=== PATIENT | male | born 1950 | race Hispanic/Latino ===

== ENCOUNTER 2021-05-05 15:48 | Emergency (ER) | payer OTHER ==
--- OUTSIDE RECORDS SUMMARY | 2021-05-05 15:51 | XMS REPORT | Continuity of Care Document ---
:1950 Author Organization [facility] t Address [address] [place] [address] Care Team Providers Name Role Phone STALIN Attending Clinician Unavailable Problems This patient has no known problems. Allergies, Adverse Reactions, Alerts This patient has no known allergies or adverse reactions. Medications This patient has no known medications. Procedures This patient has no known procedures. Encounters Start End Encounter Admission Attending Care Care Encounter Source Date/Time Date/Time Type Type Clinicians Facility Department ID 2021-05-03 [facility] [id number] 08:[facility] 2020-06-14 2020-06-14 [facility] [id number] 906 [place] 00:00:00 00:00:00 LORA [id number] 2020-05-26 2020-05-26 Outpatient [facility] [id number] 825 [place] 00:00:00 00:00:[address] Results This patient has no known results.
[2021-05-05 18:23] LABS: Absolute Lymphocytes (CBC) 1.3 K/uL (0.7-4.9); Hematocrit 41.6 % (39.6-49.0); Lymphocytes % 13.2 % (15.3-44.8); MPV 7.8 fL (7.6-11.3); RBC Red Blood Cell Count 4.52 M/uL (4.33-5.43)
[2021-05-05 18:35] LABS: Potassium 3.9 mmol/L (3.5-5.1)
--- NOTE | 2021-05-05 19:13 | RAD REPORT ---
EXAM DESCRIPTION: CT - Abdomen Pelvis W Contrast - 05/05/2021 7:03 pm CLINICAL HISTORY: CONSTIPATION COMPARISON: No comparisons TECHNIQUE: Biphasic, helical CT imaging of the abdomen and pelvis was performed following 100 ml non -ionic IV contrast. No oral contrast administered. All CT scans are performed using dose optimization technique as appropriate and may include automated exposure control or mA/KV adjustment according to patient size. FINDINGS: No suspicious findings in the lung bases. The liver, spleen, and pancreas show no suspicious findings. Gallbladder and biliary tree are also wi thout suspicious finding. Symmetric renal function is seen with no hydronephrosis or suspicious renal mass. Bilateral renal cys ts are present. A 6.8 centimeter cyst is present upper pole right kidney. Central right hilum contain s a 2.7 centimeter cyst. An exophytic lateral lower pole right renal cyst is 5.5 cm in diameter. Left kidney contains a few very small sub centimeter cysts. No pyelonephritis or acute parenchymal proces s. No bladder abnormalities. No adrenal abnormalities. Mildly prominent prostate gland projects into the bladder base. Air and fluid fill but do not dilate the stomach. No gastric wall thickening, mass or evidence for ou tlet obstruction. Duodenum is unremarkable. Small bowel loops are also unremarkable with normal appen julia. Moderate stool volume fills the colon. No colon wall thickening or mass seen. Diverticulosis in the left side colon is minimal. No free air, free fluid or inflammatory stranding. No hernia, mass or bulky lymphadenopathy. No suspicious bony findings. Prominent aortoiliac atherosclerotic calcifications are present. There is aortoiliac tortuosity. Irre gular plaquing changes are present. IMPRESSION: No obstruction, free air or emergent CT abdomen or pelvis finding. Air and fluid fill but do not dilate the stomach. No acute or worrisome stomach, small bowel or colon finding.
--- NOTE | 2021-05-05 19:26 | ER ---
Nurse's Notes [facility] Name: Gordon Cardona Age: 70 yrs Sex: Male : 1950 Arrival Date: 05/05/2021 Time: 15:52 Bed 13 Private MD: Diagnosis: Constipation Presentation: 05/05 16:09 Chief complaint: Patient states: constipation x 6 days. Pt reports today he had two ss episodes of N/V after feeling heart burn. Pt states that after he vomits, his heart burn went away. Coronavirus screen: Client denies travel out of the [place] in the last 14 days. Ebola Screen: Patient denies exposure to infectious person. Patient denies travel to an Ebola-affected area in the 21 days before illness onset. Initial Sepsis Screen: Does the patient meet any 2 criteria? HR > 90 bpm. No. Patient's initial sepsis screen is negative. Does the patient have a suspected source of infection? No. Patient's initial sepsis screen is negative. Risk Assessment: Do you want to hurt yourself or someone else? Patient reports no desire to harm self or others. Onset of symptoms was April 29, 2021. 16:09 Method Of Arrival: Ambulatory ss 16:09 Acuity: ALEKSANDRA 3 ss Historical: - Allergies: 16:11 No Known Allergies; ss - PMHx: 16:11 Diabetes mellitus; GERD; ss - Immunization history:: Client reports receiving the 2nd dose of the Covid vaccine. - Social history:: Smoking status: Patient reports the use of cigarette tobacco products, smokes one-half pack cigarettes per day, Patient/guardian denies using tobacco. Screenin:10 Abuse screen: Denies threats or abuse. Denies injuries from another. Nutritional ic1 screening: No deficits noted. Tuberculosis screening: No symptoms or risk factors identified. Fall Risk None identified. Assessment: 18:10 General: Appears in no apparent distress. comfortable, Behavior is calm, cooperative. ic1 Pain: Denies pain. Neuro: Level of Consciousness is awake, alert, obeys commands, Oriented to person, place, time, situation. Cardiovascular: Denies chest pain. Respiratory: Denies shortness of breath. GI: Abd is non tender Reports constipation, Patient currently denies nausea, vomiting. : No deficits noted. EENT: No deficits noted. Derm: No deficits noted. Musculoskeletal: No deficits noted. Vital Signs: 16:09 BP 135 / 80; Pulse 115; Resp 17; Temp 98.0(TE); Pulse Ox 100% on R/A; Weight 66.68 kg; ss Height 5 ft. 8 in. (172.72 cm); Pain 0/10; 18:10 BP 138 / 90; Pulse 93; Resp 18; Pulse Ox 99% on R/A; ic1 16:09 Body Mass Index 22.35 (66.68 kg, 172.72 cm) ED Course: 15:52 Patient arrived in ED. ds1 16:11 Triage completed. ss 16:11 Arm band placed on right wrist. ss 17:50 Heide Dale, RN is Primary Nurse. ic1 17:51 Jackelyn Blanco FNP-C is PHCP. kb 17:51 Blair Goode MD is Attending Physician. kb 18:10 Patient has correct armband on for positive identification. Bed in low position. Call ic1 light in reach. Side rails up X2. 18:10 Basic Metabolic Panel Sent. ic1 18:10 CBC with Diff Sent. ic1 18:10 No provider procedures requiring assistance completed. Inserted saline lock: 20 gauge ic1 in right antecubital area, using aseptic technique. Blood collected. 19:03 CT Abd/Pelvis - IV Contrast Only In Process Unspecified. EDMS 20:00 IV discontinued, intact, bleeding controlled, No redness/swelling at site. Pressure st1 dressing applied. Administered Medications: No medications were administered Outcome: 19:25 Discharge ordered by . kb 20:00 Discharged to home ambulatory. st1 20:00 Condition: good 20:00 Discharge instructions given to patient, Instructed on discharge instructions, follow up and referral plans. Demonstrated understanding of instructions, follow-up care. 20:01 Patient left the ED. st1 Signatures: Dispatcher [employer] EDMS Jackelyn Blanco FNP-C FNP-Ckb Sanford, Demi ds1 Sherita Barrera RN RN Heide Dale RN RN ic1 Marya Worley RN RN st1
--- NOTE | 2021-05-05 19:26 | EDPHYS ---
Physician Documentation [facility] Name: Gordon Cardona Age: 70 yrs Sex: Male : 1950 Arrival Date: 05/05/2021 Time: 15:52 Bed 13 Private MD: ED Physician Blair Goode HPI: 05/05 18:00 This 70 yrs old Male presents to ER via Ambulatory with complaints of kb Constipation, Abdominal Pain. 18:01 The patient presents to the emergency department with vomiting, constipation. Onset: kb The symptoms/episode began/occurred 7 day(s) ago. Possible causes: unknown. The symptoms are aggravated by nothing. The symptoms are alleviated by nothing. Associated signs and symptoms: Pertinent positives: constipation, vomiting, Pertinent negatives: abdominal pain, diarrhea, fever. Severity of symptoms: At their worst the symptoms were moderate in the emergency department the symptoms are unchanged. The patient has experienced similar episodes in the past, a few times. The patient has not recently seen a physician. Pt reports constipation that started 7 days ago. States he has vomited a few times as well. Denies abd pain, fever, diarrhea. States he has been able to have very small bowel movements. Has tried dulcolax with no relief. Historical: - Allergies: 16:11 No Known Allergies; ss - PMHx: 16:11 Diabetes mellitus; GERD; ss - Immunization history:: Client reports receiving the 2nd dose of the Covid vaccine. - Social history:: Smoking status: Patient reports the use of cigarette tobacco products, smokes one-half pack cigarettes per day, Patient/guardian denies using tobacco. ROS: 17:59 Constitutional: Negative for fever, chills, and weight loss. kb 17:59 Abdomen/GI: Positive for vomiting, constipation, Negative for abdominal pain. 17:59 All other systems are negative. Exam: 17:59 Constitutional: This is a well developed, well nourished patient who is awake, alert, kb and in no acute distress. Head/Face: Normocephalic, atraumatic. ENT: Moist Mucous membranes Cardiovascular: Regular rate and rhythm with a normal S1 and S2. No gallops, murmurs, or rubs. No pulse deficits. Respiratory: Respirations even and unlabored. No increased work of breathing. Talking in full sentences Abdomen/GI: Soft, non-tender. No distention Skin: Warm, dry with normal turgor. Normal color. MS/ Extremity: Pulses equal, no cyanosis. Neurovascular intact. Full, normal range of motion. Neuro: Awake and alert, GCS 15, oriented to person, place, time, and situation. Moves all extremities. Normal gait. Psych: Awake, alert, with orientation to person, place and time. Behavior, mood, and affect are within normal limits. Vital Signs: 16:09 BP 135 / 80; Pulse 115; Resp 17; Temp 98.0(TE); Pulse Ox 100% on R/A; Weight 66.68 kg; ss Height 5 ft. 8 in. (172.72 cm); Pain 0/10; 18:10 BP 138 / 90; Pulse 93; Resp 18; Pulse Ox 99% on R/A; ic1 16:09 Body Mass Index 22.35 (66.68 kg, 172.72 cm) ss MDM: 17:51 Patient medically screened. kb 18:00 Data reviewed: vital signs, nurses notes. Data interpreted: Pulse oximetry: on room air kb is 100 %. Interpretation: normal. 19:24 Counseling: I had a detailed discussion with the patient and/or guardian regarding: the kb historical points, exam findings, and any diagnostic results supporting the discharge/admit diagnosis, lab results, radiology results, the need for outpatient follow up, a family practitioner, to return to the emergency department if symptoms worsen or persist or if there are any questions or concerns that arise at home. 05/05 17:56 Order name: Basic Metabolic Panel; Complete Time: 18:36 kb 05/05 17:56 Order name: CBC with Diff; Complete Time: 18:26 kb 05/05 17:56 Order name: IV Saline Lock; Complete Time: 18:10 kb 05/05 17:56 Order name: Labs collected and sent; Complete Time: 18:10 kb 17 17:56 Order name: CT Abd/Pelvis - IV Contrast Only; Complete Time: 19:23 kb Administered Medications: No medications were administered Disposition Summary: 05/05/21 19:25 Discharge Ordered Location: Home Condition: Stable kb Diagnosis - Constipation kb Followup: kb - With: Emergency Department - When: As needed - Reason: Worsening of condition Followup: kb - With: Private Physician - When: 2 - 3 days - Reason: Recheck today's complaints, Continuance of care, Re-evaluation by your physician Discharge Instructions: - Discharge Summary Sheet kb - Constipation, Adult, [id number] kb Forms: - Medication Reconciliation Form kb - Thank You Letter kb - Antibiotic Education kb - Prescription Opioid Use kb Addendum: 05/07/2021 00:03 Co-signature as Attending Physician, Blair Goode MD I agree with the assessment and k dr plan of care. Signatures: Dispatcher [employer] EDMA Jackelyn Blanco, HOSPITALITY HOUSEKEEPER-C HOSPITALITY HOUSEKEEPER-CkBlair Patel MD MD [facility] [address] Sherita Barrera, RN RN ss Corrections: (The following items were deleted from the chart) 05/05 19:24 18:01 Pt reports constipation that started 7 days ago. States he has vomited a few kb times as well. Denies abd pain, fever, diarrhea. States he has been able to have very small bowel movements. kb
[2021-05-05 20:51] VITALS: TEMP 98
[2021-05-05 20:52] VITALS: BP 138/90; O2SAT 99
== END 2021-05-05 20:01 | disposition home or self-care (01) ==
LOC: ER 15:48
DX: K59.00 Constipation, unspecified (principal); R11.10 Vomiting, unspecified; E11.9 Type 2 diabetes mellitus without complications; F17.210 Nicotine dependence, cigarettes, uncomplicated
CPT/HCPCS: 85025; 80048; 36415; 74177; 99283; Q9967

== ENCOUNTER 2021-05-27 09:06 | Emergency (ER) | payer OTHER ==
--- OUTSIDE RECORDS SUMMARY | 2021-05-27 09:08 | XMS REPORT | Continuity of Care Document ---
:1950 Author Organization [facility] t Address [address] [place] [address] [address] [place] [address] Care Team Providers Name Role Phone STALIN [...] Type Clinicians Facility Department ID 2021-05-03 Outpatient [facility] [id number] 08:46:[facility] 2020-06-14 2020-06-14 Outpatient STALIN [facility] [id number] 906 [place] 00:00:00 00:00:00 [id number] 2020-05-26 2020-05-26 Outpatient [facility] [id number] 825 [place] 00:00:00 00:00:[address] Results This patient has no known results.
--- NOTE | 2021-05-27 09:47 | RAD REPORT ---
EXAM DESCRIPTION: RAD - Chest Single View - 05/27/2021 9:41 am CLINICAL HISTORY: syncope COMPARISON: No comparisons FINDINGS: Lines: None. Lungs: No evidence of edema or pneumonia. Pleural: No significant pleural effusions or pneumothorax. Cardiac: The heart size is within normal limits. Bones: No acute fractures. Other: IMPRESSION: No acute cardiopulmonary disease.
--- NOTE | 2021-05-27 09:50 | RAD REPORT ---
EXAM DESCRIPTION: CT - Head Brain Wo Cont - 05/27/2021 9:42 am CLINICAL HISTORY: VISUAL DISTURBANCES COMPARISON: No comparisons TECHNIQUE: All CT scans are performed using dose optimization technique as appropriate and may inclu de automated exposure control or mA/KV adjustment according to patient size. FINDINGS: No intracranial hemorrhage, hydrocephalus or extra-axial fluid collection.No areas of brai n edema or evidence of midline shift. Question postoperative changes at the right mastoid from mastoidectomy. There is debris in the right external ear canal. . The calvarium is intact. IMPRESSION: No acute intracranial abnormality.
[2021-05-27 10:02] LABS: Absolute Lymphocytes (CBC) 1.7 K/uL (0.7-4.9); Hematocrit 39.9 % (39.6-49.0); Lymphocytes % 29.9 % (15.3-44.8); MPV 7.4 fL (7.6-11.3); RBC Red Blood Cell Count 4.33 M/uL (4.33-5.43)
[2021-05-27 10:06] LABS: Protime INR 1.01
[2021-05-27 10:30] LABS: Albumin 3.5 g/dL (3.4-5.0); Bilirubin Direct 0.1 mg/dL (0-0.2); Bilirubin Total 0.4 mg/dL (0.2-1.0); Magnesium 1.7 mg/dL (1.8-2.4); Protein, Total 7.1 g/dL (6.4-8.2); Troponin High Sensitivity 5.6 pg/mL (<58.9)
[2021-05-27] MEDS ORDERED: NA CHLORIDE 0.9% 500 ML ONE (10:49)
[2021-05-27] MEDS ORDERED: MAGNESIUM SULFATE 1 gm IVPB 1 GM/100 ML BAG IV ONE (10:50)
--- NOTE | 2021-05-27 11:24 | RAD REPORT ---
EXAM DESCRIPTION: CT - Head angio - 05/27/2021 11:01 am CLINICAL HISTORY: Visual disturbances;TIA COMPARISON: Head Brain Wo Cont dated 05/27/2021 TECHNIQUE: CT angiography of the head was performed with MIPs. All CT scans are performed using dose optimization technique as appropriate and may include automated exposure control or mA/KV adjustment according to patient size. FINDINGS: Anterior circulation: No aneurysm or large vessel occlusion. No hemodynamically significant stenosis. No arteriovenous malf ormation identified. Intracranial atherosclerosis. Posterior circulation: No aneurysm or large vessel occlusion. No hemodynamically significant stenosis. No arteriovenous malf ormation identified. type left GRINDER HARDBOARD. IMPRESSION: No significant flow abnormality is detected. Moderate intracranial atherosclerosis invol ving the bilateral ICAs.
--- NOTE | 2021-05-27 11:32 | ER ---
Nurse's Notes [facility] Name: Gordon Cardona Age: 70 yrs Sex: Male : 1950 Arrival Date: 05/27/2021 Time: 09:07 Bed 4 Private MD: Chiquita Navarrete H Diagnosis: Other visual disturbances Presentation: 05/27 09:00 Chief complaint: Patient states: I was told to come to the emergency room yesterday jg9 after going to see my eye doctor, 1 year ago I had a cataract surgery, recently I had times when my vision would go black, I had my eyes checked yesterday and they doctor said he was concerned about me having a stroke due to the pressure in my eyes being high. Coronavirus screen: Vaccine status: Patient reports receiving the 2nd dose of the covid vaccine. covid vaccination x2 and booster. Ebola Screen: Patient negative for fever greater than or equal to 101.5 degrees Fahrenheit, and additional compatible Ebola Virus Disease symptoms Patient denies exposure to infectious person. Patient denies travel to an Ebola-affected area in the 21 days before illness onset. Initial Sepsis Screen: Does the patient meet any 2 criteria? No. Patient's initial sepsis screen is negative. Does the patient have a suspected source of infection? No. Patient's initial sepsis screen is negative. Initial Sepsis Screen: Does the patient meet any 2 criteria?. Risk Assessment: Do you want to hurt yourself or someone else? Patient reports no desire to harm self or others. Onset of symptoms is unknown. 09:00 Method Of Arrival: Ambulatory jg9 09:00 Acuity: ALEKSANDRA 3 jg9 Triage Assessment: 09:00 General: Appears in no apparent distress. Behavior is calm, cooperative. Pain: Denies jg9 pain. Neuro: Reports intermittent visual black outs-most recent a couple days ago. Historical: - Allergies: :27 No Known Allergies; jg9 - PMHx: 09:27 diabetes mellitus; GERD; jg9 - PSHx: 09:27 left eye cataract; jg9 - Immunization history:: Adult Immunizations up to date, Pneumococcal vaccine is up to date, Flu vaccine is not up to date. - Social history:: Smoking status: Patient reports the use of cigarette tobacco products, smokes one-half pack cigarettes per day. Screenin:28 Abuse screen: Denies threats or abuse. Denies injuries from another. Nutritional jg9 screening: No deficits noted. Tuberculosis screening: No symptoms or risk factors identified. Fall Risk None identified. Assessment: 10:03 Reassessment: Patient appears in no apparent distress at this time. No changes from jg9 previously documented assessment. 11:30 Reassessment: Patient and/or family updated on plan of care and expected duration. Pain jh6 level reassessed. Patient is alert, oriented x 3, equal unlabored respirations, skin warm/dry/pink. Patient denies pain at this time. Patient states feeling better. Vital Signs: 09:00 BP 176 / 97; Pulse 99; Resp 17 S; Temp 98.2(TE); Pulse Ox 99% on R/A; Weight 63.5 kg jg9 (R); Height 5 ft. 9 in. (175.26 cm) (R); Pain 0/10; 09:30 BP 152 / 92; Pulse 91; Resp 16 S; Pulse Ox 100% on R/A; jg9 10:00 BP 103 / 90; Pulse 86; Resp 16 S; Pulse Ox 98% on R/A; Pain 0/10; jg9 12:07 BP 154 / 77; Pulse 76; Resp 18; Pulse Ox 100% ; Pain 0/10; jh6 09:00 Body Mass Index 20.67 (63.50 kg, 175.26 cm) jg9 ED Course: 09:07 Patient arrived in ED. as 09:08 Chiquita Navarrete DO is Private Physician. as 09:12 Alma Delia Boucher, LUZ is Primary Nurse. jg9 09:14 Howard Colby PA is PHCP. jr8 09:14 Blair Goode MD is Attending Physician. jr8 09:27 Triage completed. jg9 09:29 Arm band placed on right wrist. jg9 09:29 Patient has correct armband on for positive identification. Bed in low position. Call jg9 light in reach. Side rails up X 1. 09:40 XRAY Chest (1 view) In Process Unspecified. EDMS 09:42 CT Head Brain wo Cont In Process Unspecified. EDMS 09:52 Warm blanket given. jw7 10:40 Basic Metabolic Panel Sent. jg9 10:40 CBC with Diff Sent. jg9 11:01 CT Head Angio In Process Unspecified. EDMS 11:31 Gm Taylor MD is Referral Physician. jr8 12:07 IV discontinued, intact, bleeding controlled, No redness/swelling at site. Pressure jh6 dressing applied. 12:08 No provider procedures requiring assistance completed. jh6 Administered Medications: 11:06 Drug: NS 0.9% 500 ml Route: IV; Rate: bolus; Site: right antecubital; jh6 11:06 Drug: Magnesium Sulfate 1 grams Route: IVPB; Infused Over: 1 hrs; Site: right [facility] antecubital; Outcome: 11:31 Discharge ordered by . jr8 12:08 Discharged to home jh6 12:08 Condition: good 12:08 Discharge instructions given to patient, Instructed on discharge instructions, follow up and referral plans. Demonstrated understanding of instructions, follow-up care, medications, Prescriptions given X 1. 12:08 Patient left the ED. 6 Signatures: Dispatcher [employer] Lizzy Chiu Josh, SOO PA jr8 Alma Delia Quigley, RN RN jh6 Alma Delia Boucher, RN RN jg9 Rosario Nath jw7
--- NOTE | 2021-05-27 11:32 | EDPHYS ---
Physician Documentation [facility] Name: Gordon Cardona Age: 70 yrs Sex: Male : 1950 Arrival Date: 05/27/2021 Time: 09:07 Bed 4 Private MD: Chiquita Navarrete H ED Physician Blair Goode HPI: 05/27 11:25 This 70 yrs old Male presents to ER via Ambulatory with complaints of Vision jr8 Problem. 11:25 Onset: The symptoms/episode began/occurred acutely, 2 week(s) ago. Associated signs and jr8 symptoms: The patient has no apparent associated signs or symptoms. Modifying factors: The patient symptoms are alleviated by nothing, the patient symptoms are aggravated by nothing. The patient has not experienced similar symptoms in the past. The patient has been recently seen by a physician:. Patient stated that he had a very brief less then 1 sec black spot that occurred to left eye approximately 2 weeks ago. Stated that he was just able to get into eye doctor yesterday and was concerned that he had amaurosis fugax and was sent to ED for further evaluation. Patient denies any other episodes. Denies dizziness, headaches, or pain or pressure to eye. Historical: - Allergies: 09:27 No Known Allergies; jg9 - PMHx: 09:27 diabetes mellitus; GERD; jg9 - PSHx: 09:27 left eye cataract; jg9 - Immunization history:: Adult Immunizations up to date, Pneumococcal vaccine is up to date, Flu vaccine is not up to date. - Social history:: Smoking status: Patient reports the use of cigarette tobacco products, smokes one-half pack cigarettes per day. ROS: 11:25 ENT: Negative for injury, pain, and discharge, Neck: Negative for injury, pain, and jr8 swelling, Cardiovascular: Negative for chest pain, palpitations, and edema, Respiratory: Negative for shortness of breath, cough, wheezing, and pleuritic chest pain, Abdomen/GI: Negative for abdominal pain, nausea, vomiting, diarrhea, and constipation, Back: Negative for injury and pain, MS/Extremity: Negative for injury and deformity, Skin: Negative for injury, rash, and discoloration, Neuro: Negative for headache, weakness, numbness, tingling, and seizure. 11:25 Eyes: Positive for visual disturbance. Exam: 11:25 Constitutional: This is a well developed, well nourished patient who is awake, alert, jr8 and in no acute distress. Eyes: Pupils equal round and reactive to light, extra-ocular motions intact. Lids and lashes normal. Conjunctiva and sclera are non-icteric and not injected. Cornea within normal limits. Periorbital areas with no swelling, redness, or edema. ENT: Nares patent. No nasal discharge, no septal abnormalities noted. Tympanic membranes are normal and external auditory canals are clear. Oropharynx with no redness, swelling, or masses, exudates, or evidence of obstruction, uvula midline. Mucous membranes moist. Neck: Trachea midline, no thyromegaly or masses palpated, and no cervical lymphadenopathy. Supple, full range of motion without nuchal rigidity, or vertebral point tenderness. No Meningismus. Cardiovascular: Regular rate and rhythm with a normal S1 and S2. No gallops, murmurs, or rubs. Normal PMI, no JVD. No pulse deficits. Respiratory: Lungs have equal breath sounds bilaterally, clear to auscultation and percussion. No rales, rhonchi or wheezes noted. No increased work of breathing, no retractions or nasal flaring. Abdomen/GI: Soft, non-tender, with normal bowel sounds. No distension or tympany. No guarding or rebound. No evidence of tenderness throughout. Skin: Warm, dry with normal turgor. Normal color with no rashes, no lesions, and no evidence of cellulitis. MS/ Extremity: Pulses equal, no cyanosis. Neurovascular intact. Full, normal range of motion. Neuro: Awake and alert, GCS 15, oriented to person, place, time, and situation. Cranial nerves II-XII grossly intact. Motor strength 5/5 in all extremities. Sensory grossly intact. Cerebellar exam normal. Normal gait. Vital Signs: 09:00 BP 176 / 97; Pulse 99; Resp 17 S; Temp 98.2(TE); Pulse Ox 99% on R/A; Weight 63.5 kg jg9 (R); Height 5 ft. 9 in. (175.26 cm) (R); Pain 0/10; 09:30 BP 152 / 92; Pulse 91; Resp 16 S; Pulse Ox 100% on R/A; jg9 10:00 BP 103 / 90; Pulse 86; Resp 16 S; Pulse Ox 98% on R/A; Pain 0/10; j9 12:07 BP 154 / 77; Pulse 76; Resp 18; Pulse Ox 100% ; Pain 0/10; jh6 09:00 Body Mass Index 20.67 (63.50 kg, 175.26 cm) 9 MDM: 09:15 Patient medically screened. jr8 11:25 Differential diagnosis: CVA, TIA, Retinal artery occlusion, Temporal arteritis, jr8 glaucoma. Data reviewed: vital signs, nurses notes, lab test result(s), EKG, radiologic studies, CT scan, plain films. Data interpreted: Pulse oximetry: on room air is 98 %. Interpretation: normal. Counseling: I had a detailed discussion with the patient and/or guardian regarding: the historical points, exam findings, and any diagnostic results supporting the discharge/admit diagnosis, lab results, radiology results, the need for outpatient follow up, a neurologist, to return to the emergency department if symptoms worsen or persist or if there are any questions or concerns that arise at home. 11:32 ED course: Although patient has no acute or ongoing symptoms. It is plausible that he jr8 had retinal occlusion vs TIA. CT angio shows plaquing bilaterally to ICAs. Will start on aspirin in conjunction with his statin therapy. Needs to f/u with neurology. Knows to come back if worse . 05/27 09:15 Order name: Basic Metabolic Panel [facility] 05/27 09:15 Order name: CBC with Diff [facility] 05/27 09:15 Order name: LFT's; Complete Time: 10:37 05/27 09:15 Order name: Magnesium; Complete Time: 10:37 05/27 09:15 Order name: NT PRO-BNP; Complete Time: 10:37 [facility] 05/27 09:15 Order name: PT-INR; Complete Time: 10:37 05/27 09:15 Order name: Troponin HS; Complete Time: 10:37 05/27 09:15 Order name: XRAY Chest (1 view); Complete Time: 09:53 [facility] 05/27 09:15 Order name: Basic Metabolic Panel; Complete Time: 10:37 [facility] 05/27 09:15 Order name: CBC with Automated Diff; Complete Time: 10:37 [facility] 05/27 09:26 Order name: CT Head Brain wo Cont; Complete Time: 09:53 [facility] 05/27 10:38 Order name: CT Head Angio; Complete Time: 11:25 8 05/27 09:15 Order name: EKG; Complete Time: 09:16 8 05/27 09:15 Order name: Cardiac monitoring; Complete Time: 10:40 8 05/27 09:15 Order name: EKG - Nurse/Tech; Complete Time: 10:40 8 05/27 09:15 Order name: IV Saline Lock; Complete Time: 10:40 8 05/27 09:15 Order name: Labs collected and sent; Complete Time: 10:40 [facility] 05/27 09:15 Order name: O2 Per Protocol; Complete Time: 10:41 8 05/27 09:15 Order name: O2 Sat Monitoring; Complete Time: 10:41 jr Administered Medications: 11:06 Drug: NS 0.9% 500 ml Route: IV; Rate: bolus; Site: right antecubital; [facility] 11:06 Drug: Magnesium Sulfate 1 grams Route: IVPB; Infused Over: 1 hrs; Site: right [facility] antecubital; Disposition: 12:22 Co-signature as Attending Physician, Blair Goode MD I agree with the assessment and kdr plan of care. Disposition Summary: 05/27/21 11:31 Discharge Ordered Location: Home [facility] Problem: new jr8 Symptoms: have improved jr8 Condition: Stable jr8 Diagnosis - Other visual disturbances jr8 Followup: jr8 - With: Gm Taylor MD - When: 5 - 6 days - Reason: Recheck today's complaints, Continuance of care, Re-evaluation by your physician Discharge Instructions: - Discharge Summary Sheet jr8 - Visual Disturbances jr8 Forms: - Medication Reconciliation Form jr8 - Thank You Letter jr8 - Antibiotic Education jr8 - Prescription Opioid Use jr8 Prescriptions: - aspirin 81 mg Oral tablet,delayed release (DR/EC) - take 1 tablet by ORAL route once daily; 30 tablet; Refills: 0, Product jr8 Selection Permitted Signatures: Dispatcher [facility] Blair Goode MD MD kdr Roszak, Josh, PA PA 8 Alma Delia Quigley RN RN [facility] Alma Delia Boucher, RN RN jg9
[2021-05-27 12:22] VITALS: BP 154/77; O2SAT 100
== END 2021-05-27 12:08 | disposition home or self-care (01) ==
LOC: ER 09:06
DX: H53.8 Other visual disturbances (principal); E11.9 Type 2 diabetes mellitus without complications; K21.9 Gastro-esophageal reflux disease without esophagitis; F17.210 Nicotine dependence, cigarettes, uncomplicated
CPT/HCPCS: 93005; 85025; 80048; 36415; 83735; 85610; 80076; 84484; 83880; 70450; 70496; 71045; 96374; 99284; Q9967; J3475; J7040

== ENCOUNTER 2021-07-27 07:30 | Day surgery (SDC) | payer OTHER ==
[2021-07-25 10:34] LABS: Absolute Lymphocytes (CBC) 1.6 K/uL (0.7-4.9); Hematocrit 40.4 % (39.6-49.0); Lymphocytes % 23.1 % (15.3-44.8); MPV 7.3 fL (7.6-11.3); RBC Red Blood Cell Count 4.46 M/uL (4.33-5.43)
[2021-07-25 10:39] LABS: Protime INR 0.97
[2021-07-25 10:52] LABS: Potassium 3.9 mmol/L (3.5-5.1)
--- NOTE | 2021-07-25 13:12 | EKG ---
Test Date: 2021-07-25 Test Time: 09:07:15 Validation Specialist: DEE MEASUREMENT RESULTS: Intervals: Rate: 85 DC: 226 QRSD: 94 QT: 362 QTc: 430 [place]: P: 73 DC: 226 QRS: 84 T: 86 INTERPRETIVE STATEMENTS: Sinus rhythm with 1st degree AV block Otherwise normal ECG Compared to ECG 05/27/2021 09:30:47 Myocardial infarct finding no longer present Electronically Signed On 07-25-21 13:11:42 CDT by Guillermo Wesley
[2021-07-27] MEDS ORDERED: NA CHLORIDE 0.9% 1,000 ML ONE (07:54)
[2021-07-27] MEDS ORDERED: CEFAZOLIN SODIUM 1 GM/VIAL ONE (07:54)
[2021-07-27] MEDS ORDERED: BUPIVACAINE 0.25% PF 10 ML VIAL ONE (08:15)
[2021-07-27] MEDS ORDERED: CELECOXIB 100 MG CAPSULE ONE (08:17)
[2021-07-27] MEDS ORDERED: ACETAMINOPHEN 500 MG TAB ONE (08:17)
[2021-07-27] MEDS ORDERED: MIDAZOLAM HCL 2 MG/2 ML INJ ONE (08:35)
[2021-07-27] MEDS ORDERED: propofoL 200 MG/20 ML VIAL IV ONE (08:35)
[2021-07-27] MEDS ORDERED: LIDOCAINE 2% MPF 5 ML VIAL ONE (08:35)
[2021-07-27] MEDS ORDERED: FENTANYL CITR 100 MCG/2 ML ONE (08:35)
[2021-07-27] MEDS ORDERED: KETOROLAC 30 MG/ML INJ ONE (10:01)
--- NOTE | 2021-07-27 10:05 | P.BOP ---
Preoperative diagnosis: right knee medial meniscus tear Postoperative diagnosis: same Primary procedure: right knee arthroscopic partial medial meniscectomy Home Service Director: NONE,NONE Estimated blood loss: 5 cc Specimen: none Findings: see dictation Anesthesia: General Complications: None Implants: none Fluids & blood products: per anesthesia record: TT: 40 mins @ 250 mmHg Transferred to: Recovery Room Condition: Good
[2021-07-27] MEDS ORDERED: HYDROMORPHONE HCL 1 MG/ML INJ ONE (10:29)
[2021-07-27 10:40] VITALS: O2SAT 98
[2021-07-27] MEDS ORDERED: HYDROCODONE/APAP 5/325 MG TAB ONE (11:16)
[2021-07-27 11:45] VITALS: BP 155/75; TEMP 96.5
--- NOTE | 2021-07-28 22:45 | OP ---
Date of Procedure: 07/27/2021 Surgeon: Carlos Manuel Garner MD Preoperative Diagnosis: Right knee medial meniscus tear. Postoperative Diagnosis: Right knee medial meniscus tear. Procedure Performed: Right knee arthroscopic partial medial meniscectomy. Anesthesia: General LMA. Fluids: Per Anesthesia record. Ebl: 5 cc. Complications: None. Implants: None. Tourniquet Time: 40 minutes at 250 mmHg. Indication For Procedure: Gordon is a 70-year-old male who presented to my clinic with signs, sympto ms, and MRI findings consistent with a right knee medial meniscus tear. The patient failed conservat jose measures including corticosteroid and use of antiinflammatories. I discussed with the patient at length risks and benefits associated with operative and nonoperative treatment. He expressed unders tanding and elected to proceed with operative treatment. Description Of Procedure: After informed consent was obtained, the patient was identified in the pre operative holding area. The right lower extremity was marked. The patient was then brought back to the operating room, transferred to operating table in the supine fashion, and placed under general LM A anesthesia. The right lower extremity was then prepped and draped in usual sterile fashion. A saranya e-out was initiated. Correct patient and procedure confirmed and identified. The patient did receiv e his preoperative prophylactic antibiotics. The right lower extremity was exsanguinated using an Es march and the tourniquet was inflated at 250 mmHg. Standard anteromedial and anterolateral portals w ere created. Arthroscope was brought in via the anterolateral portal and diagnostic arthroscopy was performed. There was no significant cartilage chondromalacia noted of the trochlear groove or unders urface of the patella. The arthroscope was then brought into both medial and lateral gutters. There were no loose bodies found within the gutters. 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 The patient had a complex tear of the posterior horn of t he medial meniscus as well as the medial meniscal body. Meniscal biters and arthroscopic shaver were then used to perform a partial medial meniscectomy to smooth meniscal borders, which were stable to probe. The arthroscopic instruments were then brought into the intercondylar notch. The patient did have an intact ACL and PCL. The arthroscope was then brought to the lateral compartment where the p atient was noted to have an overall intact meniscus without any instability or tears noted with the p robe. No significant chondromalacia changes noted. The arthroscopic instruments were then removed w ithout complication. Wounds were then irrigated thoroughly with normal saline. Portals were then ap proximated using a 4-0 Monocryl. Sterile dressings were applied. Tourniquet was let down. The percy ent was awakened and transferred to PACU in stable condition. Postoperative Plan: The patient will be weightbearing as tolerated. Physical Therapy will be consul jono to work with the patient for post meniscectomy protocol and he will follow up in 1 week for wound check. CV/MODL Voice ID: [id number] Report ID: [id number]
== END 2021-07-27 11:20 | disposition home or self-care (01) ==
LOC: OR 07:30
PROVIDERS: ATTEND Orthopaedic Surgery Sports Medicine
PROC: 0SBC4ZZ Excision of Right Knee Joint, Percutaneous Endoscopic Approach (ICD-10-PCS; principal; 2021-07-27 11:15)
DX: S83.241A Other tear of medial meniscus, current injury, right knee, initial encounter (principal); M25.561 Pain in right knee; E11.9 Type 2 diabetes mellitus without complications; E78.00 Pure hypercholesterolemia, unspecified; Z20.822 Contact with and (suspected) exposure to COVID-19
CPT/HCPCS: 93005; 85025; 80048; 36415; 85610; 82947 ×2; 85730; 29881; U0003; J2704; J2250; J3010; J1170; J7030; J0690